=== PATIENT | female | born 1960 | race Caucasian/White ===

== ENCOUNTER 2023-12-22 13:06 | Emergency (ER) | payer OTHER ==
--- NOTE | 2023-12-22 13:34 | ED ---
Weakness HPI - General Source: patient, family, RN notes reviewed Mode of arrival: ambulatory Limitations: no limitations <Travis Navarro - Last Filed: 12/22/23 13:33> - General Source: patient, family, RN notes reviewed Mode of arrival: ambulatory Limitations: no limitations - History of Present Illness MD Complaint: generalized weakness <Gisel Stubbs - Last Filed: 12/22/23 18:35> - General Chief complaint: Weakness Stated complaint: weakness Time Seen by Provider: 12/22/23 13:33 - History of Present Illness Initial comments: Patient is a 63-year-old female presented to ER with chief complaint of weakness. Patient states for the past week she has been feeling ill and today she feels extremely weak. She has been around grandchildren that have been diagnosed with the flu. (Travis Navarro) This is a 63-year-old female who presents to the emergency department for weakness. Over the last week she had URI symptoms with coughing, congestion, fevers, and chills. Those symptoms have since improved, however she now just feels generally weak. States that she does not have the energy that she typically has. Denies any chest pain or shortness of breath. Her states that she does not eat or drink as much as she should and likely needs to be getting more rest. (Gisel Stubbs) - Related Data Home Medications Medication Instructions Recorded Confirmed No Known Home Medications 03/31/15 08/31/15 Allergies Allergy/AdvReac Type Severity Reaction Status Date / Time adhesive Allergy BLISTERS Verified 08/31/15 10:01 IF ON TOO LONG Review of Systems ROS Other: All systems not noted in ROS Statement are negative. <Travis Navarro - Last Filed: 12/22/23 13:33> ROS Other: All systems not noted in ROS Statement are negative. <Gisel Stubbs - Last Filed: 12/22/23 18:35> ROS Statement: Those systems with pertinent positive or pertinent negative responses have been documented in the HPI. Past Medical History Past Medical History: No Reported History Additional Past Medical History / Comment(s): HX of large fibroid uterus, HEMORRHAGING. History of Any Multi-Drug Resistant Organisms: None Reported Past Surgical History: Adenoidectomy, Section, Ear Surgery, Tonsi llectomy Additional Past Surgical History / Comment(s): x3. D&C 03/2015. ESTHER, LT SO, RT SALPINGECTOMY 04/27/15. rectocele repair Past Anesthesia/Blood Transfusion Reactions: No Reported Reaction Past Psychological History: No Psychological Hx Reported Past Alcohol Use History: None Reported Past Drug Use History: None Reported - Past Family History Mother Family Medical History: No Reported History Father Additional Family Medical History / Comment(s): of heart attack <Travis Navarro - Last Filed: 12/22/23 13:33> General Exam Limitations: no limitations <Travis Navarro - Last Filed: 12/22/23 13:33> Limitations: no limitations General appearance: alert, in no apparent distress Head exam: Present: atraumatic, normocephalic, normal inspection Respiratory exam: Present: normal lung sounds bilaterally. Absent: respiratory distress, wheezes, rales, rhonchi, stridor Cardiovascular Exam: Present: regular rate, normal rhythm, normal heart sounds. Absent: systolic murmur, diastolic murmur, rubs, gallop, clicks Neurological exam: Present: alert, oriented X3, CN II-XII intact Psychiatric exam: Present: normal affect, normal mood Skin exam: Present: warm, dry, intact, normal color. Absent: rash <Gisel Stubbs - Last Filed: 12/22/23 18:35> - General Exam Comments Initial Comments: Visual Physical Exam Vital signs reviewed General: Well-appearing, nontoxic, no acute distress. Head: Normocephalic, atraumatic Eyes: PERRLA, EOMI ENT: Airway patent Chest: Nonlabored breathing Skin: No visual rash, normal skin tone Neuro: Alert and oriented 3 Musculoskeletal: No gross abnormalities (Travis Navarro) Course Vital Signs 12/22/23 13:28 Temperature 98.9 F Pulse Rate 85 Respiratory 16 Rate Blood Pressure 140/82 O2 Sat by Pulse 97 Oximetry Medical Decision Making <Travis Navarro - Last Filed: 12/22/23 13:33> - Lab Data Result diagrams: 12/22/23 13:40 12/22/23 13:40 - Radiology Data Radiology results: report reviewed, image reviewed <Gisel Stubbs - Last Filed: 12/22/23 18:35> - Medical Decision Making I performed the quick note portion of this chart. Electronically signed by Travis Navarro PA-C (Travis Navarro) This is a 63 year old female who presents to the emergency department for weakness. Was pt. sent in by a medical professional or institution? @ -No Did you speak to anyone other than the patient for history? @ -Her mother provided all of the history. Did you review nursing and triage notes? @ -Yes, and I agree, it is accurate with regards to the patient's symptoms. Were old charts reviewed? @ -No Differential Diagnosis? @ -Differential Sore Throat: Strep pharyngitis, herpes zoster, COVID, influenza, GERD, allergic rhinitis, mononucleosis, this is not meant to be an all-inclusive list. EKG interpreted by me (3pts min.)? @ -EKG interpreted by me demonstrating the following: Sinus rhythm. Ventricular rate 73 bpm, NM interval 162 ms, QRS duration 85 ms, QTc 391 ms. X-rays interpreted by me (1pt min.)? @ -Chest x-ray obtained, my interpretation identifies no localized consolidations or infiltrates. CT interpreted by me (1pt min.)? @ -Not obtained U/S interpreted by me (1pt. min.)? @ -Not obtained What testing was considered but not performed? (CT, X-rays, U/S, labs)? Why? @ -None What meds were considered but not given? Why? @ -None Did you discuss the management of the patient with other professionals? @ -No Did you reconcile home meds? @ -No Was smoking cessation discussed for >3mins.? @ -No Was critical care preformed (if so, how long)? @ -No Were there social determinants of health that impacted care today? How? (Homelessness, low income, unemployed, alcoholism, drug addiction, transportation, low edu. Level, literacy, decrease access to med. care, group home, rehab)? @ -No Was there de-escalation of care discussed even if they declined? (Discuss DNR or withdrawal of care, Hospice)? @ -No What co-morbidities impacted this encounter? (DM, HTN, Smoking, COPD, CAD, Cancer, CVA, Hep., AIDS, mental health diagnosis, sleep apnea, morbid obesity)? @ -None Was patient admitted / discharged? @ -Discharged. Lab work unremarkable. Urinalysis negative for signs of infection. COVID, influenza, RSV, and heterophile negative. Chest x-ray reveals no acute process. Patient given a liter bolus of IV fluids with improvement in symptoms. Discussed that her body may still be recovering from the respiratory illness she has had over the last week. Advise getting plenty of rest and drinking plenty of fluids. Patient discharged home in stable condition. Undiagnosed new problem with uncertain prognosis? @ -None Drug Therapy requiring intensive monitoring for toxicity (Heparin, Nitro, Insulin, Cardizem)? @ -None Were any procedures done? @ -None Diagnosis/symptom? @ -Weakness Acute, or Chronic, or Acute on Chronic? @ -Acute Uncomplicated (without systemic symptoms) or Complicated (systemic symptoms)? @ -Uncomplicated Side effects of treatment? @ -None Exacerbation, Progression, or Severe Exacerbation] @ -Not applicable Poses a threat to life or bodily function? @ -No Return precautions reviewed in depth, the patient is instructed to return to the emergency department with any new, worsening, or concerning symptoms. Patient verbalized understanding. This case was discussed in detail with the attending ED physician, Dr. Mack. Presentation, findings, and treatment plan discussed in detail as well. (Gisel Stubbs) - Lab Data Lab Results 12/22/23 12/22/23 12/22/23 Range/Units 13:15 13:40 13:40 WBC 5.1 (3.8-10.6) k/uL RBC 4.75 (3.80-5.40) m/uL Hgb 14.6 (11.4-16.0) gm/dL Hct 41.0 (34.0-46.0) % MCV 86.4 (80.0-100.0) fL MCH 30.8 (25.0-35.0) pg MCHC 35.7 (31.0-37.0) g/dL RDW 12.7 (11.5-15.5) % Plt Count 266 (150-450) k/uL MPV 7.8 Sodium 141 (137-145) mmol/L Potassium 4.1 (3.5-5.1) mmol/L Chloride 109 H (98-107) mmol/L Carbon Dioxide 22 (22-30) mmol/L Anion Gap 10 mmol/L BUN 12 (7-17) mg/dL Creatinine 0.69 (0.52-1.04) mg/dL Est GFR (CKD-EPI)AfAm >90 (>60 ml/min/1.73 sqM) Est GFR (CKD-EPI)NonAf >90 (>60 ml/min/1.73 sqM) Glucose 151 H (74-99) mg/dL Calcium 9.4 (8.4-10.2) mg/dL Phosphorus (2.5-4.5) mg/dL Magnesium (1.6-2.3) mg/dL Total Bilirubin 0.6 (0.2-1.3) mg/dL AST 25 (14-36) U/L ALT 29 (4-34) U/L Alkaline Phosphatase 66 (38-126) U/L Total Protein 7.2 (6.3-8.2) g/dL Albumin 4.2 (3.5-5.0) g/dL TSH (0.465-4.680) mIU/L Urine Color Urine Appearance (Clear) Urine pH (5.0-8.0) Ur Specific [place] (1.001-1.035) Urine Protein (Negative) Urine Glucose (UA) (Negative) Urine Ketones (Negative) Urine Blood (Negative) Urine Nitrite (Negative) Urine Bilirubin (Negative) Urine Urobilinogen (<2.0) mg/dL Ur Leukocyte Esterase (Negative) Heterophile Antibody (Negative) Influenza Type A (PCR) Not Detected (Not Detectd) Influenza Type B (PCR) Not Detected (Not Detectd) RSV (PCR) Not Detected (Not Detectd) SARS-CoV-2 (PCR) Not Detected (Not Detectd) 12/22/23 12/22/23 12/22/23 Range/Units 13:40 13:40 15:33 WBC (3.8-10.6) k/uL RBC (3.80-5.40) m/uL Hgb (11.4-16.0) gm/dL Hct (34.0-46.0) % MCV (80.0-100.0) fL MCH (25.0-35.0) pg MCHC (31.0-37.0) g/dL RDW (11.5-15.5) % Plt Count (150-450) k/uL MPV Sodium (137-145) mmol/L Potassium (3.5-5.1) mmol/L Chloride (98-107) mmol/L Carbon Dioxide (22-30) mmol/L Anion Gap mmol/L BUN (7-17) mg/dL Creatinine (0.52-1.04) mg/dL Est GFR (CKD-EPI)AfAm (>60 ml/min/1.73 sqM) Est GFR (CKD-EPI)NonAf (>60 ml/min/1.73 sqM) Glucose (74-99) mg/dL Calcium (8.4-10.2) mg/dL Phosphorus 2.1 L (2.5-4.5) mg/dL Magnesium 1.9 (1.6-2.3) mg/dL Total Bilirubin (0.2-1.3) mg/dL AST (14-36) U/L ALT (4-34) U/L Alkaline Phosphatase (38-126) U/L Total Protein (6.3-8.2) g/dL Albumin (3.5-5.0) g/dL TSH 1.940 (0.465-4.680) mIU/L Urine Color Colorless Urine Appearance Clear (Clear) Urine pH 5.5 (5.0-8.0) Ur Specific [place] 1.003 (1.001-1.035) Urine Protein Negative (Negative) Urine Glucose (UA) Negative (Negative) Urine Ketones Negative (Negative) Urine Blood Negative (Negative) Urine Nitrite Negative (Negative) Urine Bilirubin Negative (Negative) Urine Urobilinogen <2.0 (<2.0) mg/dL Ur Leukocyte Esterase Negative (Negative) Heterophile Antibody Negative (Negative) Influenza Type A (PCR) (Not Detectd) Influenza Type B (PCR) (Not Detectd) RSV (PCR) (Not Detectd) SARS-CoV-2 (PCR) (Not Detectd) Disposition <Travis Navarro - Last Filed: 12/22/23 13:33> Is patient prescribed a controlled substance at d/c from ED?: No Time of Disposition: 18:08 <Gisel Stubbs - Last Filed: 12/22/23 18:35> Clinical Impression: Weakness Disposition: HOME SELF-CARE Instructions (If sedation given, give patient instructions): Weakness (ED) Additional Instructions: Return to the emergency department with any new, worsening, or concerning symptoms. Make sure you drink plenty of fluids and get plenty of rest. Follow up with your primary care provider in 1-2 days. Referrals: None,Stated [Primary Care Provider] - 1-2 days
[2023-12-22 13:56] VITALS: BP 140/82; PULSE 85; RESP 16; TEMP 98.9
[2023-12-22 14:02] LABS: HGB 14.6 gm/dL (11.4-16.0); MCH 30.8 pg (25.0-35.0); MCHC 35.7 g/dL (31.0-37.0); MCV 86.4 fL (80.0-100.0); Mean Platelet Volume 7.8; Platelet Count 266 k/uL (150-450); RBC 4.75 m/uL (3.80-5.40); RDW 12.7 % (11.5-15.5); WBC 5.1 k/uL (3.8-10.6)
[2023-12-22 14:23] LABS: ALT 29 U/L (4-34); AST 25 U/L (14-36); African American GFR (CKD) >90 (>60 ml/min/1.73 sqM); Albumin 4.2 g/dL (3.5-5.0); Alkaline Phosphatase 66 U/L (38-126); Anion Gap 10 mmol/L; Blood Urea Nitrogen 12 mg/dL (7-17); Calcium 9.4 mg/dL (8.4-10.2); Carbon Dioxide 22 mmol/L (22-30); Chloride 109 mmol/L (98-107); Glucose 151 mg/dL (74-99); Non-African American GFR(CKD) >90 (>60 ml/min/1.73 sqM); Potassium 4.1 mmol/L (3.5-5.1); Sodium 141 mmol/L (137-145); Total Bilirubin 0.6 mg/dL (0.2-1.3); Total Protein 7.2 g/dL (6.3-8.2)
--- NOTE | 2023-12-22 14:30 | XR ---
EXAMINATION TYPE: XR chest 2V DATE OF EXAM: 12/22/2023 2:13 PM CLINICAL INDICATION:Female, 63 years old with history of weakness; [facility] COMPARISON: None TECHNIQUE: XR chest 2V Frontal and lateral views of the chest. FINDINGS: Lungs/Pleura: There is no evidence of pleural effusion, focal consolidation, or pneumothorax. Pulmonary vascularity: Unremarkable. Heart/mediastinum: Cardiomediastinal silhouette is unremarkable. Musculoskeletal: No acute osseous pathology. IMPRESSION: No acute cardiopulmonary disease/process.
[2023-12-22 15:53] LABS: Appearance,Urine Clear (Clear); Bilirubin,Urine Negative (Negative); Blood,Urine Negative (Negative); Color,Urine Colorless; Glucose,Urine (UA) Negative (Negative); Ketones,Urine Negative (Negative); Leukocyte Esterase,Urine Negative (Negative); Nitrite,Urine Negative (Negative); PH, Urine 5.5 (5.0-8.0); Protein,Urine Negative (Negative); Specific Gravity,Urine 1.003 (1.001-1.035); Urobilinogen,Urine <2.0 mg/dL (<2.0)
[2023-12-22] MEDS: SODIUM CHLORIDE 0.9% 1,000 ML IV STA (16:16)
[2023-12-22 17:13] LABS: Magnesium 1.9 mg/dL (1.6-2.3); Phosphorus 2.1 mg/dL (2.5-4.5)
== END 2023-12-22 18:23 | disposition home or self-care (01) ==
LOC: EC 13:06
DX: R53.1 Weakness (principal); Z91.048 Other nonmedicinal substance allergy status; Z20.822 Contact with and (suspected) exposure to COVID-19
CPT/HCPCS: 36415; 71046; 80053; 81003; 83735; 84100; 84443; 85027; 86308; 87636; 93005; 96360; 99285